=== PATIENT | male | born 1975 | race Caucasian/White ===

== ENCOUNTER → 2023-12-22 16:52 | Outpatient (REF) | payer BC, SELFPAY | LOC: PAVMRI 16:52 | PROVIDERS: FAMILY PHYSICIAN Internal Medicine | DX: M12.9 Arthropathy, unspecified (principal) | CPT/HCPCS: 72141 ==

== ENCOUNTER 2024-06-30 14:17 | Emergency (ER) | payer BC, SELFPAY ==
[2024-06-30 14:21] VITALS: BP 153/96
[2024-06-30] MEDS: TORADOL 30 MG IM (15:50)
--- NOTE | 2024-06-30 16:04 | ED.GENMED ---
History of Present Illness
General
Chief Complaint: Musculo-Skeletal Complaint
Source: patient
Exam Limitations: none
Time Seen by Provider: 06/30/24 15:09
Nursing documentation reviewed up to this point in time: agreed with
History of Present Illness
History of Present Illness:
48-year-old male past medical history of hypertension presenting to the emergency department today with concerns of a popping and tearing sensation into the right bicep region while lifting a box earlier today. Ongoing discomfort and deformity to
his right bicep since. Denies additional injuries otherwise. Denies any numbness or weakness.
Past History
Past History
ED Past Medical History: HTN and Other (renal calc); Negative IDDM, NIDDM or MS
ED Past Surgical History: Appendectomy
Social History
Tobacco: Smoker (Vaps)
Alcohol: None
Drug: None
Personal:
Living: with family
Employment: Employed
Family History
Family History: Other (Noncontributory)
Review of Systems
Review of Systems
Allergies reviewed?: Yes
All Other Systems: ROS reviewed and negative except as documented in HPI and ROS
Phy Exam
Physical Exam
Physical Exam:
GENERAL: Alert , in no apparent distress
EYE: pupils equal and reactive
NECK: Supple, no significant adenopathy.
ENT: o/p clr, mmm.
CARDIAC: Regular rate and rhythm .
LUNGS: Clear breath sounds bilaterally, no acute respiratory distress, no wheezes/rales/rhonchi
ABDOMEN: Soft, without focal tenderness, no r/g, no cvat
NEUROLOGICAL: Alert and oriented, no focal neuro deficits
SKIN: Warm and dry, skin intact.
MUSCULOSKELETAL: Deformity to the right bicep significant discomfort to the distal bicep region. No edema, well perfused.
PSYCH: Normal and appropriate interaction.
Course
Orders/Labs/Results
Orders:
Orders
06/30/24 14:26
Humerus, Right 2 Views [CR Humerus - Right Min 2 View*] Urgent
Comment:
Reason For Exam: pain
06/30/24 15:39
Ketorolac [Toradol] 30 mg IM NOW STA
Vital Signs
Initial and Last Documented VS:
Initial Vital Signs
Temp Pulse Resp BP Pulse Ox
98 F 105 18 153/96 94
06/30/24 14:21 06/30/24 14:21 06/30/24 14:21 06/30/24 14:21 06/30/24 14:21
Last Documented Vital Signs
Temp Pulse Resp BP Pulse Ox
98 F 105 18 153/96 94
06/30/24 14:21 06/30/24 14:21 06/30/24 14:21 06/30/24 14:21 06/30/24 14:21
MDM/Problems Addressed
MDM/Problems Addressed:
48-year-old male presenting to the emergency department concerns of injury to his right bicep occurring earlier today. Patient clinically has a bicep tendon tear. Patient was placed in a splint otherwise will follow-up closely with orthopedics.
Return precautions given.
*Critical Care Note
Total Time (30-74mins, 75-104mins- exclusive of procedures): Not Applicable
ED Attending Note
-
Portions of this chart may have been created with voice recognition software.� Occasional wrong word or��sound alike� substitutions may have occurred due to the inherent limitations of voice recognition software.
Discharge Plan
Departure
Patient Disposition: Home (Routine Discharge)
Date of Disposition: 06/30/24
Time of Disposition: 16:04
Patient with high blood pressure during this ER visit?: No
Condition: Good
Covid-19: Not Applicable
Discharge Problem:
Tear of distal tendon of biceps
Instructions: Biceps Tendon Rupture (DC)
Prescriptions:
New
oxycodone-acetaminophen [Endocet] 5-325 mg tablet
1 tab PO Q8H PRN (Reason: Pain) Qty: 7 0RF
oxycodone-acetaminophen [Endocet] 5-325 mg tablet
1 tab PO Q8H PRN (Reason: Pain) Qty: 7 0RF
No Action
ibuprofen 600 MG tablet
600 mg PO Q6H Qty: 30 0RF
ondansetron 4 MG tablet,disintegrating
4 mg PO TIDPRN PRN (Reason: NAUSEA) Qty: 20 0RF
hydrocodone-acetaminophen [Vicodin] 1 EACH tablet
1 ea PO Q4 PRN (Reason: pain) Qty: 14 0RF
Referrals:
Roge Ruby I., [Family Provider] -
Joe Colorado MD [Active] - Follow up in 2-3 days
Activity Restrictions/Additional Instructions:
You came to the emergency department today with concerns of a right sided bicep tear. Please wear the sling ice elevate and take pain medication to help with symptoms. Please follow close with orthopedics for likely surgical consultation. Return
for any worsening, new or concerning symptoms.
Interventions
Interventions:
*Risk Screen - Suicide Last Done: 06/30/24 14:25
*General Assessment Last Done: 06/30/24 14:25
*Neglect/Abuse Screening Last Done: 06/30/24 14:25
*ED- Fall Risk Assessment Last Done: 06/30/24 14:25
*ED COVID-19 Vaccine History Last Done: 06/30/24 14:25
*Nursing Disposition Last Done: 06/30/24 16:52
ED-Musculoskeletal Assessment Last Done: 06/30/24 14:57
Discharge Date and Time
Discharge Date/Time: 06/30/24 16:52
Print Language: INDONESIAN
== END 2024-06-30 16:52 | disposition home or self-care (01) ==
LOC: EMR 14:17
PROVIDERS: EMERGENCY PHYSICIAN Emergency Medicine; FAMILY PHYSICIAN Internal Medicine
DX: S46.211A Strain of muscle, fascia and tendon of other parts of biceps, right arm, initial encounter (principal); X50.9XXA Other and unspecified overexertion or strenuous movements or postures, initial encounter; I10 Essential (primary) hypertension; F17.290 Nicotine dependence, other tobacco product, uncomplicated; Z90.49 Acquired absence of other specified parts of digestive tract
CPT/HCPCS: 99283; 96372; 73060

== ENCOUNTER → 2024-08-30 07:44 | Outpatient (REF) | payer BC, SELFPAY | LOC: HWRCS 07:44 | PROVIDERS: ATTENDING PHYSICIAN Internal Medicine Cardiovascular Disease; FAMILY PHYSICIAN Internal Medicine | DX: E78.00 Pure hypercholesterolemia, unspecified (principal); I10 Essential (primary) hypertension; R94.31 Abnormal electrocardiogram [ECG] [EKG] | CPT/HCPCS: 93306 ==

== ENCOUNTER → 2024-09-19 07:22 | Outpatient (REF) | payer BC, SELFPAY | LOC: RCS 07:22 | PROVIDERS: ATTENDING PHYSICIAN Internal Medicine Cardiovascular Disease; FAMILY PHYSICIAN Internal Medicine | DX: E78.00 Pure hypercholesterolemia, unspecified (principal); I10 Essential (primary) hypertension; R94.31 Abnormal electrocardiogram [ECG] [EKG] | CPT/HCPCS: 93017 ==

== ENCOUNTER → 2024-11-07 08:44 | Outpatient (REF) | payer SELFPAY | LOC: HWRAD 08:44 | PROVIDERS: ATTENDING PHYSICIAN Internal Medicine | DX: I10 Essential (primary) hypertension (principal); G43.009 Migraine without aura, not intractable, without status migrainosus; E66.812 Obesity, class 2; E66.01 Morbid (severe) obesity due to excess calories | CPT/HCPCS: 75571 ==

== ENCOUNTER 2024-11-14 06:18 | Day surgery (SDC) | payer BC, SELFPAY | END 2024-11-14 14:45 | disposition home or self-care (01) | LOC: GI 06:18 | PROVIDERS: ATTENDING PHYSICIAN Internal Medicine Gastroenterology | DX: K44.9 Diaphragmatic hernia without obstruction or gangrene (principal); K22.89 Other specified disease of esophagus; K29.70 Gastritis, unspecified, without bleeding; K29.80 Duodenitis without bleeding; K29.50 Unspecified chronic gastritis without bleeding; B96.81 Helicobacter pylori [H. pylori] as the cause of diseases classified elsewhere; K21.00 Gastro-esophageal reflux disease with esophagitis, without bleeding | CPT/HCPCS: 43239; 88305; 88342 ==

== ENCOUNTER → 2025-03-23 10:21 | Outpatient (REF) | payer BC, SELFPAY | LOC: RAD 10:21 | PROVIDERS: ATTENDING PHYSICIAN Internal Medicine | DX: J10.1 Influenza due to other identified influenza virus with other respiratory manifestations (principal); R05.1 Acute cough | CPT/HCPCS: 71046 ==